=== PATIENT | female | born 1990 | race Caucasian/White ===

== ENCOUNTER 2017-03-16 17:50 | Emergency (ER) | payer MEDICAID, OTHER ==
[2017-03-16 17:51] VITALS: BMI 29.2
[2017-03-16 17:59] VITALS: TEMP 98.1
--- NOTE | 2017-03-16 18:16 | ED PDOC ---
Arrival/HPI - General Chief Complaint: Respiratory Distress Time Seen by Provider: 03/16/17 17:52 Historian: Patient - History of Present Illness Narrative History of Present Illness (Text): 03/16/17 18:10 A 26 year old female, whose past medical history includes anxiety, but not medicated, presents to the emergency department with complaints of shortness of breath with a heavy weight on her chest, which began about 6 months ago. The patient reports that these episodes can occur at any time of the day regardless of what she is doing and have worsened over the past month. She denies any cough, headache, fever, vision changes, abdominal pain, nausea, vomiting, dizziness, or any other complaints at this time. PMD: Dr. Jefferson Time/Duration: > month (6 months) Symptom Onset: Other Symptom Course: Unchanged Activities at Onset: Rest, Light Context: Home Past Medical History - Provider Review Nursing Documentation Reviewed: Yes - Tetanus Immunization Tetanus Immunization: Unknown - Cardiac Hx Cardiac Disorders: No - Pulmonary Hx Respiratory Disorders: No - Neurological Hx Neurological Disorder: No - HEENT Hx HEENT Disorder: No - Renal Other/Comment: kidney syndrome as a child - Endocrine/Metabolic Hx Endocrine Disorders: No - Hematological/Oncological Hx Blood Disorders: No - Integumentary Hx Dermatological Disorder: No - Musculoskeletal/Rheumatological Hx Musculoskeletal Disorders: No - Gastrointestinal Hx Gastrointestinal Disorders: No - Genitourinary/Gynecological Hx Genitourinary Disorders: No - Psychiatric Hx Psychophysiologic Disorder: Yes Hx Bipolar Disorder: Yes Hx Substance Use: No - Surgical History Other/Comment: Hernia Family/Social History - Physician Review Nursing Documentation Reviewed: Yes Family/Social History: No Known Family HX Smoking Status: Light Smoker < 10 Cigarettes Daily Hx Alcohol Use: Yes Hx Substance Use: No Allergies/Home Meds Allergies/Adverse Reactions: Allergies No Known Allergies Allergy (Verified 11/18/15 15:15) Review of Systems - Physician Review All systems were reviewed & negative as marked: Yes - Review of Systems Constitutional: absent: Fevers Eyes: absent: Vision Changes Respiratory: SOB Cardiovascular: Chest Pain, Palpitations Gastrointestinal: absent: Abdominal Pain, Nausea, Vomiting Neurological: absent: Headache, Dizziness Psychiatric: Anxiety Physical Exam Vital Signs Temp Pulse Resp BP Pulse Ox 03/16/17 18:47 16 100 03/16/17 18:44 69 12 119/75 100 03/16/17 17:53 98.1 F 67 18 129/72 99 Temperature: Afebrile Blood Pressure: Normal Pulse: Regular Respiratory Rate: Normal Appearance: Positive for: Well-Appearing, Non-Toxic, Comfortable, Other ( Anxious appearing) Pain Distress: None Mental Status: Positive for: Alert and Oriented X 3 - Systems Exam Head: Present: Atraumatic, Normocephalic Pupils: Present: PERRL Conjunctiva: Present: Normal Mouth: Present: Moist Mucous Membranes Pharnyx: Present: Normal. No: ERYTHEMA, EXUDATE Neck: Present: Normal Range of Motion Respiratory/Chest: Present: Clear to Auscultation, Good Air Exchange. No: Respiratory Distress, Accessory Muscle Use Cardiovascular: Present: Regular Rate and Rhythm, Normal S1, S2. No: Murmurs Abdomen: Present: Normal Bowel Sounds. No: Tenderness, Distention, Peritoneal Signs Back: Present: Normal Inspection Upper Extremity: Present: Normal Inspection. No: Cyanosis, Edema Lower Extremity: Present: Normal Inspection. No: Edema Neurological: Present: GCS=15, CN II-XII Intact, Speech Normal Skin: Present: Warm, Dry, Normal Color. No: Rashes Psychiatric: Present: Alert, Oriented x 3, Normal Insight, Normal Concentration , Anxious (anxious appearing ) Medical Decision Making ED Course and Treatment: 03/16/17 18:10 Impression: A 26 year old female with shortness of breath and chest heaviness. Differential Diagnosis included but are not limited to: ACS vs. GERD vs. muscular pain vs. pulmonary embolism Plan: -- EKG -- Chest X-ray -- Labs -- Xanax -- test -- Reassess and disposition Prior Visits: Notes and results from previous visits were reviewed. The patient was last seen in the emergency department on 08/01/16 for intoxication and patient was arrested by police department for assaulting an officer in the emergency department. The patient was medically cleared prior to discharge. Progress Notes: 03/16/17 20:59 Patient with noted history here in the emergency department. EKG is normal with normal CXR and labs are unremarkable, including normal CE and d-dimer - patient feeling better s/p xanax - doubt cardiopulmonary etiology and much more consistent with anxiety - will d/c and have her follow up pmd and psychiatry for anxiety. Will give few tabs of xanax till she follows up with psychiatry. - Lab Interpretations Lab Results: 03/16/17 19:10 03/16/17 19:00 Lab Results 03/16/17 19:10: D-Dimer, Quantitative 0.44 03/16/17 19:10: WBC 9.5, RBC 4.17, Hgb 12.9, Hct 36.7, MCV 88.0, MCH 30.9, MCHC 35.1, RDW 12.1, Plt Count 208, MPV 9.8, Gran % 56.0, Lymph % (Auto) 31.1, [place] % (Auto) 7.2 H, Eos % (Auto) 5.4 H, Baso % (Auto) 0.3, Gran # 5.34, Lymph # 3.0 , [place] # 0.7 H, Eos # 0.5, Baso # 0.03 03/16/17 19:00: Sodium 140, Potassium 3.9, Chloride 106, Carbon Dioxide 24, Anion Gap 14, BUN 18, Creatinine 0.7, Est GFR ( Amer) > 60, Est GFR (Non- Af Amer) > 60, Random Glucose 91, Calcium 9.3, Magnesium 1.8, Total Bilirubin 0.4, AST 23, ALT 22, Alkaline Phosphatase 60, Lactate Dehydrogenase 554, Total Creatine Kinase 78, Troponin I < 0.01, Total Protein 6.9, Albumin 4.4, Globulin 2.5, Albumin/Globulin Ratio 1.8, Lipase 123 - RAD Interpretation Radiology Orders: 03/16/17 18:13 CHEST TWO VIEWS (PA/LAT) [RAD] Stat - Medication Orders Current Medication Orders: Discontinued Medications Alprazolam (Xanax) 0.25 mg PO STAT STA PRN Reason: Protocol Stop: 03/16/17 18:15 Last Admin: 03/16/17 18:41 Dose: 0.25 mg - PA / MINE GEOLOGIST / Resident Statement MD/DO has reviewed & agrees with the documentation as recorded. - Scribe Statement The provider has reviewed the documentation as recorded by the Elfego Reeves Provider Scribe Attestation: All medical record entries made by the Scribe were at my direction and personally dictated by me. I have reviewed the chart and agree that the record accurately reflects my personal performance of the history, physical exam, medical decision making, and the department course for this patient. I have also personally directed, reviewed, and agree with the discharge instructions and disposition. Disposition/Present on Arrival - Present on Arrival Any Indicators Present on Arrival: No History of DVT/PE: No History of Uncontrolled Diabetes: No Urinary Catheter: No History of Decub. Ulcer: No History Surgical Site Infection Following: None - Disposition Have Diagnosis and Disposition been Completed?: Yes Diagnosis: Anxiety Disposition: HOME/ ROUTINE Disposition Time: 21:00 Patient Plan: Discharge Patient Problems: Current Active Problems Problem Status Onset Anxiety Acute Condition: GOOD Discharge Instructions (ExitCare): Anxiety (ED) Additional Instructions: Avoid stressors as much as you are able. Follow up with Dr. Jefferson and psychiatry. You may use the xanax as needed over the next few days. Return to the emergency department if any new concerning symptoms. Prescriptions: ALPRAZolam [Xanax] 1 tab PO Q8H PRN #9 tab PRN Reason: Anxiety Referrals: Obi Jefferson DO [Primary Care Provider] - Follow up with primary [facility] [Outside] - Follow up with primary [facility] [Outside] - Follow up with primary Florentino Licea MD [Staff Provider] - Follow up with primary Forms: [employer] (Greenlandic)
[2017-03-16 18:45] VITALS: O2SAT 100
[2017-03-16 18:53] VITALS: RESP 16
[2017-03-16 19:25] LABS: BASO # 0.03 K/mm3 (0.0-2.0); BASO % 0.3 % (0.0-3.0); EOS # 0.5 (0.0-0.7); EOS % 5.4 % (1.5-5.0); GRAN # 5.34 (1.4-6.5); HEMOGLOBIN 12.9 g/dL (12.0-16.0); LYMPH % 31.1 % (22.0-35.0); MEAN CORPUSCULAR HEMOGLOBIN 30.9 pg (25.0-35.0); MEAN CORPUSCULAR HGB CONC 35.1 g/dl (31.0-37.0); MEAN PLATELET VOLUME 9.8 fl (7.0-11.0); MONO # 0.7 (0.1-0.6); MONO % 7.2 % (1.0-6.0); PLATELET COUNT 208 10^3/uL (120.0-450.0); RBC 4.17 10^6/uL (3.5-6.1); RED CELL DISTRIBUTION WIDTH 12.1 % (11.5-14.5); WHITE BLOOD COUNT 9.5 10^3/ul (4.5-11.0)
[2017-03-16 19:28] LABS: ALB/GLOB RATIO 1.8 (1.1-1.8); ALBUMIN 4.4 g/dL (3.0-4.8); ALT/SGPT 22 U/L (7-56); AST/SGOT 23 U/L (15-39); BLOOD UREA NITROGEN 18 mg/dL (7-21); CALCIUM 9.3 mg/dL (8.4-10.5); GFR AFRICAN-AMERICAN > 60; GFR NON-AFRICAN AMERICAN > 60; LIPASE 123 U/L (23-300); MAGNESIUM 1.8 mg/dL (1.7-2.2)
[2017-03-16 19:41] LABS: TROPONIN I < 0.01 ng/mL
[2017-03-16 21:13] VITALS: BP 124/66; PULSE 87
--- NOTE | 2017-03-17 07:30 | RAD ---
HISTORY: chest pain COMPARISON: No prior. TECHNIQUE: Chest PA and lateral FINDINGS: LUNGS: No active pulmonary disease. PLEURA: No significant pleural effusion identified. No pneumothorax apparent. CARDIOVASCULAR: Normal. OSSEOUS STRUCTURES: No significant abnormalities. VISUALIZED UPPER ABDOMEN: Normal. OTHER FINDINGS: None. IMPRESSION: No active disease.
--- NOTE | 2017-03-17 09:57 | CARD ---
APPROVED REPORT EKG Measurement Heart [id number] <Conclusion> Normal sinus rhythm Right atrial enlargement
== END 2017-03-16 21:13 | disposition home or self-care (01) ==
LOC: ED 17:50
DX: F41.9 Anxiety disorder, unspecified (principal)